=== PATIENT | female | born 1990 | race Caucasian/White ===

== ENCOUNTER 2020-08-12 07:45 | Inpatient (IN) ==
[2020-08-12] MEDS ORDERED: Azithromycin 500 MG in 0.9 % Sodium Chloride 250 ML IVPB PRN (07:46)
[2020-08-12] MEDS ORDERED: Famotidine 20 MG/2 ML VIAL IVP PRN (07:46)
[2020-08-12] MEDS ORDERED: Lidocaine 1% 20 ML MDV INFILT PRN (07:46)
[2020-08-12] MEDS ORDERED: Naloxone 0.4 MG/ML INJ IVP PRN (07:46)
[2020-08-12] MEDS ORDERED: *HR* Nalbuphine 10 MG/ML AMPUL IV PRN (07:46)
[2020-08-12] MEDS ORDERED: Metoclopramide 10 MG/2 ML VIAL IVP PRN (07:46)
[2020-08-12] MEDS ORDERED: Ondansetron 4 MG/2 ML VIAL IVP PRN (07:46)
[2020-08-12] MEDS ORDERED: Penicillin G Potassium 5,000,000 UNIT in 0.9 % Sodium Chloride Mini Bag 100 ML IVPB ONE (07:48)
[2020-08-12] MEDS: Ringers Solution, Lactated 1,000 ML IVC SCH ×2 (08:10→12:04)
[2020-08-12 08:23] LABS: Basophils # 0.1 K/mcL (0.0-0.2); Basophils % 0.5 %; Eosinophils # 0.1 K/mcL (0.0-0.6); Eosinophils % 0.4 %; Hematocrit 35.8 % (35.3-44.9); Hemoglobin 11.5 g/dL (11.5-15.4); Immature Granulocytes % 3.4 % (0-4); Lymphocytes % 15.9 %; Mean Corpuscular HGB Conc 32.1 g/dL (31.6-35.5); Mean Corpuscular Hemoglobin 30.5 pg (28.0-33.3); Mean Platelet Volume 10.2 fL (9.4-12.4); Monocytes # 0.9 K/mcL (0.0-1.3); Monocytes % 7.2 %; Neutrophils # 9.3 K/mcL (1.6-8.9); Platelet Count 236 K/mcL (140-400); Red Blood Count 3.77 M/mcL (3.82-4.97); Red Cell Distribution Width 13.4 % (11.5-14.5); Segmented Neutrophils % 72.6 %; White Blood Count 12.8 K/mcL (4.3-11.1)
[2020-08-12] MEDS ORDERED: EPHEDrine 50 MG/ML VIAL IVP PRN (08:26)
[2020-08-12] MEDS ORDERED: Ropivacaine/PF 0.2% 20 ML VIAL EP ONE (08:26)
[2020-08-12] MEDS ORDERED: Ropivacaine/PF 0.2% 20 ML VIAL ONE (08:29)
[2020-08-12] MEDS ORDERED: Epidural Premix (fent/bupiv) 110 ML EP SCH (08:30)
[2020-08-12 09:11] LABS: Amphetamine Screen,Urine Negative ng/mL (Cutoff=1000); Barbiturate Screen,Urine Negative ng/mL (Cutoff=200); Benzodiazepines Screen,Urine Negative ng/mL (Cutoff=200); Cannabinoid Screen,Urine Negative ng/mL (Cutoff = 50); Cocaine Screen,Urine Negative ng/mL (Cutoff= 300); Opiate Screen,Urine Negative ng/mL (Cutoff=300); Phencyclidine Screen,Urine Negative ng/mL (Cutoff=25)
[2020-08-12] MEDS ORDERED: Mag Hydrox/Al Hydrox/Simeth 30 ML UDC PO ONE (09:52)
[2020-08-12] MEDS ORDERED: Penicillin G Potassium 2,500,000 UNIT in 0.9 % Sodium Chloride 100 ML IVPB SCH (12:00)
[2020-08-12] MEDS ORDERED: Lanolin 7 G OINT...G. TP PRN (17:08)
[2020-08-12] MEDS ORDERED: Benzocaine/Menthol 56 GM AEROSOL SPRAY TP PRN (17:08)
[2020-08-12] MEDS ORDERED: Oxytocin 20 units/ LR 1000 mL 20 UNIT/1,000 ML BAG IVC SCH (17:08)
[2020-08-12] MEDS: Ibuprofen 600 MG TABLET PO SCH (17:47)
[2020-08-12] MEDS: Acetaminophen 325 MG TABLET PO SCH (17:48)
[2020-08-13] MEDS: Ibuprofen 600 MG TABLET PO SCH ×2 (03:39→08:50)
[2020-08-13] MEDS: Acetaminophen 325 MG TABLET PO SCH ×2 (03:39→08:50)
[2020-08-13 07:58] VITALS: BP 139/82
[2020-08-13] MEDS ORDERED: Prenatal Vit/FA 1 EACH TABLET PO SCH (09:00)
== END 2020-08-13 15:31 | disposition home or self-care (01) | DRG 768 ==
LOC: 1NENULAB → 1NENUOBS 17:05
PROVIDERS: ADMIT Student in an Organized Health Care Education/Training Program; ATTEND Student in an Organized Health Care Education/Training Program

== ENCOUNTER 2021-11-11 21:16 | Inpatient (IN) ==
[2021-11-11] MEDS ORDERED: Lidocaine 1% 20 ML MDV INFILT PRN (21:28)
[2021-11-11] MEDS ORDERED: Famotidine 20 MG/2 ML VIAL IVP PRN (21:28)
[2021-11-11] MEDS ORDERED: *HR* Nalbuphine 10 MG/ML AMPUL IV PRN (21:28)
[2021-11-11] MEDS ORDERED: Naloxone 0.4 MG/ML INJ IVP PRN (21:28)
[2021-11-11] MEDS ORDERED: Metoclopramide 10 MG/2 ML VIAL IVP PRN (21:28)
[2021-11-11] MEDS ORDERED: Ondansetron 4 MG/2 ML VIAL IVP PRN (21:28)
[2021-11-11] MEDS ORDERED: Ringers Solution, Lactated 1,000 ML IVC SCH (21:30)
[2021-11-11] MEDS ORDERED: EPHEDrine sulfate 50 MG/10 ML VIAL IVP PRN (21:35)
[2021-11-11] MEDS ORDERED: Epidural Premix (fent/bupiv) 110 ML EP ONE (21:39)
[2021-11-11] MEDS ORDERED: Epidural Premix (fent/bupiv) 110 ML EP SCH (21:45)
[2021-11-11 22:03] LABS: Amphetamine Screen,Urine Negative ng/mL (Cutoff=1000); Barbiturate Screen,Urine Negative ng/mL (Cutoff=200); Benzodiazepines Screen,Urine Negative ng/mL (Cutoff=200); Cannabinoid Screen,Urine Negative ng/mL (Cutoff = 50); Cocaine Screen,Urine Negative ng/mL (Cutoff= 300); Opiate Screen,Urine Negative ng/mL (Cutoff=300); Phencyclidine Screen,Urine Negative ng/mL (Cutoff=25)
[2021-11-11 22:06] LABS: Basophils % 0.4 %; Eosinophils # 0.1 K/mcL (0.0-0.6); Eosinophils % 0.5 %; Hematocrit 32.8 % (35.3-44.9); Hemoglobin 10.9 g/dL (11.5-15.4); Immature Granulocytes % 1.7 % (0-4); Lymphocytes # 1.6 K/mcL (0.6-4.6); Lymphocytes % 14.3 %; Mean Corpuscular HGB Conc 33.2 g/dL (31.6-35.5); Mean Corpuscular Hemoglobin 30.9 pg (28.0-33.3); Mean Corpuscular Volume 92.9 fL (83.0-100.0); Mean Platelet Volume 10.8 fL (9.4-12.4); Monocytes # 0.8 K/mcL (0.0-1.3); Monocytes % 7.2 %; Neutrophils # 8.4 K/mcL (1.6-8.9); Platelet Count 250 K/mcL (140-400); Red Blood Count 3.53 M/mcL (3.82-4.97); Red Cell Distribution Width 13.5 % (11.5-14.5); Segmented Neutrophils % 75.9 %; White Blood Count 11.1 K/mcL (4.3-11.1)
[2021-11-11] MEDS ORDERED: *HR* FentaNYL (PF) 100 MCG/2 ML VIAL ONE (22:42)
[2021-11-11] MEDS ORDERED: Bupivacaine-MPF 0.25% 10 ML VIAL ONE (22:42)
[2021-11-11] MEDS ORDERED: Ropivacaine/PF 0.2% 20 ML VIAL ONE (22:43)
[2021-11-11] MEDS ORDERED: Ropivacaine/PF 0.5% 30 ML VIAL ONE (22:43)
[2021-11-11] MEDS ORDERED: Oxytocin 30 UNIT/503 ML BAG IVC ONE (23:04)
[2021-11-12] MEDS ORDERED: Rho Immune Globulin 1,500 UNIT SYRINGE IM PRN (02:48)
[2021-11-12] MEDS ORDERED: Ondansetron ODT 4 MG TAB.RAPDIS SL PRN (02:48)
[2021-11-12] MEDS ORDERED: Lanolin 7 G OINT...G. TP PRN ×2 (02:48)
[2021-11-12] MEDS ORDERED: Measles/Mumps/Rubella Vacc 0.5 ML VIAL SQ PRN (02:48)
[2021-11-12] MEDS ORDERED: Benzocaine/Menthol 56 GM AEROSOL SPRAY TP PRN ×2 (02:48)
[2021-11-12] MEDS ORDERED: *HR* Oxytocin 10 UNIT/ML VIAL IM ONE (02:48)
[2021-11-12] MEDS: Ibuprofen 600 MG TABLET PO SCH ×3 (03:26→16:53)
[2021-11-12] MEDS: Acetaminophen 325 MG TABLET PO SCH ×2 (03:26→16:53)
[2021-11-12 04:24] LABS: Basophils % 0.2 %; Eosinophils % 0.1 %; Hematocrit 32.6 % (35.3-44.9); Hemoglobin 10.9 g/dL (11.5-15.4); Immature Granulocytes % 0.8 % (0-4); Lymphocytes # 1.3 K/mcL (0.6-4.6); Mean Corpuscular HGB Conc 33.4 g/dL (31.6-35.5); Mean Corpuscular Hemoglobin 30.9 pg (28.0-33.3); Mean Corpuscular Volume 92.4 fL (83.0-100.0); Mean Platelet Volume 10.4 fL (9.4-12.4); Monocytes # 0.9 K/mcL (0.0-1.3); Monocytes % 5.1 %; Platelet Count 238 K/mcL (140-400); Red Blood Count 3.53 M/mcL (3.82-4.97); Red Cell Distribution Width 13.4 % (11.5-14.5); Segmented Neutrophils % 85.8 %
[2021-11-12 04:25] LABS: Neutrophils # 14.3 K/mcL (1.6-8.9); White Blood Count 16.7 K/mcL (4.3-11.1)
[2021-11-12] MEDS ORDERED: Ibuprofen 600 MG TABLET PO SCH (06:00)
[2021-11-12] MEDS ORDERED: Prenatal Vit/FA 1 EACH TABLET PO SCH (09:00)
[2021-11-12] MEDS ORDERED: NON-FORMULARY MEDICATION 1 EACH EACH (Ferrous Sulfate 324 MG) PO SCH (09:00)
[2021-11-12] MEDS ORDERED: NON-FORMULARY MEDICATION 1 EACH EACH (Prenatal Caplet 1 TAB) PO SCH (09:00)
[2021-11-12 20:16] VITALS: BP 117/68; PULSE 77; TEMP 98.3; O2SAT 98
== END 2021-11-13 01:50 | disposition home or self-care (01) | DRG 807 ==
LOC: 1NENULAB → 1NENUOBS 11-12 02:49
PROVIDERS: ADMIT Obstetrics & Gynecology; ATTEND Obstetrics & Gynecology